=== PATIENT | female | born 1990 | race Caucasian/White ===

== ENCOUNTER 2019-01-25 20:14 | Inpatient (IN) | payer OTHER ==
[~2019-01-25] VITALS: Ht 152 cm; Wt 95.3 kg
[2019-01-25] MEDS ORDERED: RINGERS SOLUTION,LACTATED 1,000 ML IV ONE (20:18)
[2019-01-25] MEDS ORDERED: OXYTOCIN 30 UNITS/LACT RINGERS 500 ML IV ONE (20:18)
[2019-01-25] MEDS ORDERED: CITRIC ACID/SODIUM CITRATE 30 ML SOLUTION UDCUP PO PRN (20:30)
[2019-01-25] MEDS ORDERED: METOCLOPRAMIDE HCL 5 MG/ML 2 ML VIAL IVP PRN (20:30)
[2019-01-25] MEDS ORDERED: LIDOCAINE/PF 1% 30 ML VIAL INJ PRN (20:30)
[2019-01-25] MEDS ORDERED: MINERAL OIL 30 ML UDCUP VG ONE (20:30)
[2019-01-25 20:49] LABS: BASOPHILS % (AUTO) 1.1 % (0.0-2.0); EOSINOPHILS % (AUTO) 1.3 % (1.0-6.0); HEMATOCRIT 38.2 % (36-46); HEMOGLOBIN 13.1 g/dL (12.0-16.0); LYMPHOCYTES % (AUTO) 18.2 % (22.0-44.0); MEAN CORPUSCULAR HGB CONC 34.2 G/dL (31.0-37.0); MEAN CORPUSCULAR VOLUME 88 fL (80-100); MONOCYTES # (AUTO) 0.7 K/uL (0.1-1.0); MONOCYTES % (AUTO) 6.3 % (2.0-9.0); NEUTROPHILS # (AUTO) 7.9 K/uL (1.8-7.7); NEUTROPHILS % (AUTO) 73.1 % (40.0-70.0); PLATELET COUNT (AUTO)-OB 320 K/uL (150-450); RED BLOOD CELL COUNT(AUTO) 4.35 MIL/uL (4.00-5.20); RED CELL DISTRIBUTION WIDTH 13.9 % (11.5-14.5)
[2019-01-25 20:58] VITALS: BP 111/74
[2019-01-25] MEDS ORDERED: PNV11TAB PO (20:59)
[2019-01-25] MEDS: RINGERS SOLUTION,LACTATED 1,000 ML IV SCH ×2 (21:11→21:12)
[2019-01-25] MEDS: OXYTOCIN 30 UNITS/LACT RINGERS 500 ML IV PRN (21:12)
[2019-01-25] MEDS: MISOPROSTOL 50 MCG TABLET PO SCH (21:13)
[2019-01-26] MEDS: MISOPROSTOL 50 MCG TABLET PO SCH ×2 (01:06→05:37)
[2019-01-26] MEDS: OXYTOCIN 30 UNITS/LACT RINGERS 500 ML IV PRN (05:37)
[2019-01-26] MEDS: FentaNYL CITRATE-PF 100 MCG/2 ML VIAL IVP PRN ×2 (05:37→05:41)
[2019-01-26] MEDS ORDERED: ROPIVACAINE HCL/PF 0.2% 100 ML ED ONE (06:41)
[2019-01-26] MEDS ORDERED: ROPIVACAINE HCL/PF 0.2% 100 ML ED PRN (07:08)
[2019-01-26] MEDS ORDERED: ONDANSETRON HCL 4 MG/2 ML VIAL IVP PRN (07:15)
[2019-01-26] MEDS ORDERED: NALBUPHINE HCL 10 MG/ML VIAL IVP PRN (07:15)
[2019-01-26] MEDS ORDERED: DiphenhydrAMINE HCL 50 MG/ML VIAL IVP PRN (07:15)
[2019-01-26] MEDS: RINGERS SOLUTION,LACTATED 1,000 ML IV SCH (07:47)
[2019-01-26] MEDS ORDERED: OXYTOCIN 30 UNITS/LACT RINGERS 500 ML IV ONE (12:04)
[2019-01-26] MEDS ORDERED: BENZOCAINE 20%/MENTHOL 56 GM SPRAY CANISTER TP PRN (12:15)
[2019-01-26] MEDS ORDERED: IBUPROFEN 800 MG TABLET PO PRN (12:15)
[2019-01-26] MEDS ORDERED: OxyCODONE HCL/ACETAMINOPHEN 5-325 MG TABLET PO PRN ×2 (12:15)
[2019-01-26] MEDS ORDERED: GLYCERIN/WITCH HAZEL LEAF 40 PADS JAR TP PRN (12:15)
[2019-01-26] MEDS ORDERED: LANOLIN 7 GM OINTMENT TP PRN (12:15)
[2019-01-26] MEDS ORDERED: LIDOCAINE/PF 1% 30 ML VIAL INJ PRN (12:15)
[2019-01-26] MEDS ORDERED: METHYLERGONOVINE MALEATE 0.2 MG/ML VIAL IM ONE (12:45)
[2019-01-26] MEDS ORDERED: GENTAMICIN 120 MG/NACL ISO-OSM 100 ML IV ONE (13:30)
[2019-01-26] MEDS ORDERED: ACETAMINOPHEN 325 MG TABLET PO ONE (13:45)
[2019-01-26] MEDS ORDERED: ACETAMINOPHEN 1000 MG/ISO-OSM 100 ML IV ONE (14:00)
[2019-01-26] MEDS ORDERED: RINGERS SOLUTION,LACTATED 1,000 ML IV ONE (14:26)
[2019-01-26] MEDS ORDERED: RINGERS SOLUTION,LACTATED 1,000 ML IV SCH (14:45)
[2019-01-26] MEDS: CLINDAMYCIN 600 MG/D5% WATER 50 ML IV SCH (15:47)
[2019-01-26 16:00] LABS: INFLUENZA TYPE A NEGATIVE FOR TYPE A (NEGATIVE); INFLUENZA TYPE B NEGATIVE FOR TYPE B (NEGATIVE)
[2019-01-26] MEDS: MAGNESIUM HYDROXIDE SUSPENSION 30 ML UDCUP PO PRN (20:51)
[2019-01-26] MEDS: GENTAMICIN 80 MG/NACL ISO-OSM 50 ML IV SCH (22:04)
[2019-01-27] MEDS: CLINDAMYCIN 600 MG/D5% WATER 50 ML IV SCH ×2 (00:08→07:55)
[2019-01-27] MEDS: GENTAMICIN 80 MG/NACL ISO-OSM 50 ML IV SCH (06:22)
[2019-01-27 06:53] LABS: BASOPHILS % (AUTO) 0.4 % (0.0-2.0); EOSINOPHILS % (AUTO) 0.3 % (1.0-6.0); HEMATOCRIT 30.8 % (36-46); HEMOGLOBIN 10.7 g/dL (12.0-16.0); LYMPHOCYTES # (AUTO) 1.6 K/uL (1.0-4.8); LYMPHOCYTES % (AUTO) 10.7 % (22.0-44.0); MEAN CORPUSCULAR HEMOGLOBIN 30.2 pg (26.0-34.0); MEAN CORPUSCULAR HGB CONC 34.8 G/dL (31.0-37.0); MEAN CORPUSCULAR VOLUME 87 fL (80-100); MONOCYTES # (AUTO) 0.9 K/uL (0.1-1.0); MONOCYTES % (AUTO) 6.2 % (2.0-9.0); NEUTROPHILS # (AUTO) 11.9 K/uL (1.8-7.7); NEUTROPHILS % (AUTO) 82.4 % (40.0-70.0); PLATELET COUNT (AUTO)-OB 255 K/uL (150-450); RED BLOOD CELL COUNT(AUTO) 3.55 MIL/uL (4.00-5.20); RED CELL DISTRIBUTION WIDTH 13.8 % (11.5-14.5)
[2019-01-27] MEDS: MAGNESIUM HYDROXIDE SUSPENSION 30 ML UDCUP PO PRN (10:07)
== END 2019-01-27 12:15 | disposition home or self-care (01) | DRG 806 ==
LOC: 4S 20:14 → OBSVTOIN 20:14
PROVIDERS: ADMIT Obstetrics & Gynecology; ATTEND Obstetrics & Gynecology
PROC: 10E0XZZ Delivery of Products of Conception, External Approach (ICD-10-PCS; principal; 2019-01-26)
PROC: 10907ZC Drainage of Amniotic Fluid, Therapeutic from Products of Conception, Via Natural or Artificial Opening (ICD-10-PCS; 2019-01-26)
PROC: 0HQ9XZZ Repair Perineum Skin, External Approach (ICD-10-PCS; 2019-01-26)
PROC: 3E0R3BZ Introduction of Anesthetic Agent into Spinal Canal, Percutaneous Approach (ICD-10-PCS; 2019-01-26)
PROC: 00HU33Z Insertion of Infusion Device into Spinal Canal, Percutaneous Approach (ICD-10-PCS; 2019-01-26)
DX: O77.0 Labor and delivery complicated by meconium in amniotic fluid (principal); O86.4 Pyrexia of unknown origin following delivery; Z37.0 Single live birth; O69.81X0 Labor and delivery complicated by cord around neck, without compression, not applicable or unspecified; Z3A.40 40 weeks gestation of pregnancy; O70.0 First degree perineal laceration during delivery
CPT/HCPCS: 86850; 86900; 86901; 87804; J0131; J1580; J2210; J2590; J2795; J3010; J3490; J7120